=== PATIENT | male | born 1945 | race Caucasian/White ===

== ENCOUNTER 2017-03-28 07:14 | Day surgery (SDC) | payer MEDICARE ==
[~2017-03-28 07:14] MED LIST: Buffered Lidocaine 0.9% SYRIN* 5 ML/SYR SYRINGE INTRADERM ONE; Famotidine IV* 10 MG/ML 2 ML (20 mg) IV ONE; Metoclopramide TAB* 10 MG PO ONE
[2017-03-28] MEDS ORDERED: Metoclopramide TAB* 10 MG ONE (07:15)
[2017-03-28] MEDS ORDERED: Clindamycin 900 MG IVPREMIX(* 900 MG/50 ML SDV IV ONE (07:15)
[2017-03-28] MEDS ORDERED: Famotidine IV* 10 MG/ML 2 ML (20 mg) ONE (07:15)
[2017-03-28] MEDS ORDERED: Buffered Lidocaine 0.9% SYRIN* 5 ML/SYR SYRINGE ONE (07:15)
[2017-03-28] MEDS ORDERED: Lidocaine 2% PF * 5 ML VIAL ONE (08:07)
[2017-03-28] MEDS ORDERED: Propofol* 10 MG/ML 20 ML BTL IV PUSH ONE ×2 (08:07→09:57)
[2017-03-28] MEDS ORDERED: Ondansetron INJ* 2 MG/ML VIAL ONE (08:07)
[2017-03-28] MEDS ORDERED: Dexamethasone IV* 4 MG/ML 1 ML (4 MG) ONE (08:07)
[2017-03-28] MEDS ORDERED: KETAMINE HCL* 50 MG/ML 10 ML VIAL ONE (08:07)
[2017-03-28] MEDS ORDERED: Ketorolac INJ* 30 MG/ML 1 ML VIAL ONE (08:07)
[2017-03-28] MEDS ORDERED: fentaNYL* 50 MCG/ML 2 ML VIAL (100 MCG VIAL) ONE (08:07)
[2017-03-28] MEDS ORDERED: Midazolam* 1 MG/ML 10 ML VIAL (10 MG) ONE (08:08)
[2017-03-28] MEDS ORDERED: Lidocaine 1% INJ* 10 MG/ML 30 ML SDV ONE (08:46)
[2017-03-28] MEDS ORDERED: Bupivacaine 0.5% SDV PF* 10-30ML VIAL ONE (08:46)
[2017-03-28] MEDS ORDERED: Lidocaine 1% MPF wEPI 200,000* 30 ML SDV ONE (08:57)
[2017-03-28] MEDS ORDERED: EPHEDrine (Pressors)* 50 MG/ML VIAL ONE (09:26)
[2017-03-28] MEDS ORDERED: fentaNYL* 50 MCG/ML 2 ML VIAL (100 MCG VIAL) IV PRN (09:33)
[2017-03-28] MEDS ORDERED: Naloxone* 0.4 MG/ML 1 ML VIAL IV PRN (09:33)
[2017-03-28] MEDS ORDERED: Ondansetron INJ* 2 MG/ML VIAL IV PRN (09:33)
[2017-03-28] MEDS ORDERED: oxyCODONE/Acetamin 5/325 MG* TAB PO PRN ×2 (09:33→10:27)
[2017-03-28 11:46] VITALS: BP 133/81
--- NOTE | 2017-03-29 18:51 | OP ---
DATE OF OPERATION: 03/28/17 - [facility] DATE OF : 47 SURGEON: Fabrice oJ MD GAUGE MACHINE OPERATOR: EKTA Crandall ANESTHESIOLOGIST: Cameron Banda MD ANESTHESIA: Local with monitored anesthesia care. PRE-OP DIAGNOSIS: Left inguinal hernia. POST-OP DIAGNOSIS: Left indirect inguinal hernia. OPERATIVE PROCEDURE: Open repair with Covidien ProGrip mesh repair of left indirect inguinal hernia. ESTIMATED BLOOD LOSS: Minimal. WOUND CLASSIFICATION: 1. COMPLICATIONS: None. DRAINS: None. SPECIMENS: None. DESCRIPTION OF PROCEDURE: Written informed consent was obtained, the left groin was marked with indelible ink and preoperative antibiotics were administered. The patient was taken to the operating room, placed in the supine position. Sequential compression devices and a warming blanket were applied. The left groin and lower abdomen were prepped and draped in the usual sterile fashion. Time-out verification was completed. 0.25% Marcaine mixed with 1% lidocaine with 0.5% Marcaine was infiltrated in the left groin several fingerbreadths above the inguinal crease. An oblique incision was made several fingerbreadths above the inguinal crease on the left, carried down to the external oblique aponeurosis, which we opened in the direction of its fibers to expose the underlying spermatic cord. The cord and its contents were then encircled with one quarter-inch Katrin drain at the pubic tubercle. The direct space was evaluated. This appeared to be intact without evidence of direct space hernia. The cord structures were then carefully evaluated and there was a rather large indirect inguinal hernia sac, which was from the cord structures with care to prevent injury to the vas deferens up into the internal ring, where it was reduced nicely. The internal ring appeared to be of normal size. Next, the ProGrip pre-cut Covidien mesh was then placed and sutured to the pubic tubercle medially with an interrupted 0 Polysorb suture. It was then placed and it was sutured with 1 suture to the conjoint tendon and two separate interrupted sutures to the inguinal ligament inferiorly. The mesh covered the direct and indirect spaces nicely and reconstructed the internal ring well. Hemostasis was assured. Additional Marcaine was infiltrated and the external oblique aponeurosis was closed with a running 3-0 Polysorb suture. Subcutaneous tissue was closed with a running 3-0 Polysorb suture. The skin was approximated with a subcuticular 4-0 Polysorb suture. Steri-Strips and sterile dressings were applied. The patient tolerated the procedure well, was taken to the recovery room in stable condition. [id number] #: [id number] MTDD
== END 2017-03-28 11:46 | disposition home or self-care (01) ==
LOC: OR 07:14
PROVIDERS: ATTEND Surgery
DX: K40.90 Unilateral inguinal hernia, without obstruction or gangrene, not specified as recurrent (principal); Z72.0 Tobacco use; D64.9 Anemia, unspecified; E78.5 Hyperlipidemia, unspecified; I10 Essential (primary) hypertension; I25.10 Atherosclerotic heart disease of native coronary artery without angina pectoris; I73.9 Peripheral vascular disease, unspecified; I34.0 Nonrheumatic mitral (valve) insufficiency
CPT/HCPCS: A9270-GY; J1100; J1885; J2001; J2250; J2405; J2704; J3010